=== PATIENT | female | born 1965 | race Asian ===

== ENCOUNTER 2020-08-02 22:47 | Emergency (ER) | payer MEDICAID ==
[~2020-08-02] VITALS: Ht 162.6 cm; Wt 72.6 kg
[2020-08-02 23:08] VITALS: Ht 162.6 cm; Wt 72.6 kg
--- NOTE | 2020-08-03 00:04 | NUR ---
unable to obtain abg. dr concepcion made aware.
[2020-08-03 00:14] LABS: POTASSIUM SERUM 4.2 mmol/L (3.5-5.1)
[2020-08-03 00:15] LABS: CALCIUM 8.5 mg/dL (8.5-10.1); CREATININE SERUM 1.8 mg/dL (0.6-1.0)
[2020-08-03 00:29] LABS: BILIRUBIN TOTAL 0.4 mg/dL (0.20-1.00); TOTAL PROTEIN, SERUM 6.5 g/dL (6.4-8.2)
[2020-08-03 00:30] LABS: BASOPHIL % 0.2 % (0-2); PLATELET COUNT 195 x10^3mcL (130-400)
[2020-08-03 00:35] LABS: ALBUMIN 3.3 g/dL (3.4-5.0)
[2020-08-03] MEDS ORDERED: NORCO1 TA2 PO (01:17)
[2020-08-03] MEDS ORDERED: METFORMIN HCL500 M4 PO (01:17)
[2020-08-03] MEDS ORDERED: ACTOS15 M1 PO (01:17)
[2020-08-03] MEDS ORDERED: ASPIR 8181 MG PO (01:18)
[2020-08-03] MEDS ORDERED: AMARYL4 MG PO (01:18)
[2020-08-03] MEDS ORDERED: KEFLEX500 M1 PO (01:18)
[2020-08-03] MEDS ORDERED: FUROSEMIDE20 MG PO (01:19)
[2020-08-03] MEDS ORDERED: ALDACTONE25 MG PO (01:19)
[2020-08-03] MEDS ORDERED: COUMADIN3 MG PO (01:20)
[2020-08-03] MEDS ORDERED: COREG25 M1 PO (01:21)
[2020-08-03] MEDS ORDERED: ATORVASTATIN CA10 M1 PO (01:22)
[2020-08-03] MEDS ORDERED: LOTENSIN20 MG PO (01:23)
[2020-08-03 07:21] LABS: SOURCE FLUID pericardiocenthesis
[2020-08-03 07:29] LABS: WBC FLUID 8.3 /cumm
[2020-08-03 07:37] LABS: RBC FLUID 4.11 /cumm
[2020-08-03 10:12] VITALS: BP 130/69
[2020-08-03 11:16] LABS: LYMPHOCYTE FLUID 28 %
[2020-08-03 11:17] LABS: MONOCYTE FLUID 2 %
== END 2020-08-03 09:41 | disposition short-term general hospital (02) ==
LOC: ED 22:47
PROVIDERS: Student in an Organized Health Care Education/Training Program
DX: I31.4 Cardiac tamponade (principal); I95.9 Hypotension, unspecified; N17.9 Acute kidney failure, unspecified; E87.2 Acidosis; R77.8 Other specified abnormalities of plasma proteins; R79.1 Abnormal coagulation profile; E11.9 Type 2 diabetes mellitus without complications
CPT/HCPCS: 82962; 83880; C9132; J0171; J2001; J2060; J3010; J3370; J3430; J3490; J7040; J7050; Q9967; U0003

== ENCOUNTER 2020-08-14 14:15 | Emergency (ER) | payer MEDICAID ==
[~2020-08-14] VITALS: Ht 157.5 cm; Wt 55.8 kg
[~2020-08-14 14:15] MED LIST: ACTOS15 M1 PO; ALDACTONE25 MG PO; AMARYL4 MG PO; ASPIR 8181 MG PO; ATORVASTATIN CA10 M1 PO; COREG25 M1 PO; COUMADIN3 MG PO; FUROSEMIDE20 MG PO; KEFLEX500 M1 PO; LOTENSIN20 MG PO; METFORMIN HCL500 M4 PO; NORCO1 TA2 PO
[2020-08-14 14:38] VITALS: Ht 157.5 cm; Wt 55.8 kg
[2020-08-14 15:11] LABS: BASOPHIL % 0.3 % (0-2); PLATELET COUNT 329 x10^3mcL (130-400); RED CELL DISTRIBUTION WIDTH 15.1 % (11.5-14.5)
[2020-08-14 15:15] LABS: CALCIUM 8.1 mg/dL (8.5-10.1); CARBON DIOXIDE 23.4 mmol/L (21-32); POTASSIUM SERUM 4.9 mmol/L (3.5-5.1)
[2020-08-14 15:19] LABS: BILIRUBIN TOTAL 0.7 mg/dL (0.20-1.00); TOTAL PROTEIN, SERUM 6.4 g/dL (6.4-8.2)
[2020-08-14 15:22] LABS: ALBUMIN 3.1 g/dL (3.4-5.0)
[2020-08-14 21:36] VITALS: BP 98/55
== END 2020-08-14 21:36 | disposition short-term general hospital (02) ==
LOC: ED 14:15
PROVIDERS: Emergency Medicine
DX: I30.9 Acute pericarditis, unspecified (principal); E11.9 Type 2 diabetes mellitus without complications; I11.0 Hypertensive heart disease with heart failure; I50.9 Heart failure, unspecified; Z86.73 Personal history of transient ischemic attack (TIA), and cerebral infarction without residual deficits; Z95.810 Presence of automatic (implantable) cardiac defibrillator
CPT/HCPCS: 82962